=== PATIENT | female | born 1955 | race Caucasian/White ===

== ENCOUNTER 2017-01-17 20:52 | Emergency (ER) | payer OTHER ==
[~2017-01-17] VITALS: Ht 160 cm; Wt 159.0 kg
[~2017-01-17 20:52] MED LIST: ALEVE220 M2 PO; FLOVENT 22120 INHALA IH; FLOVENT DISKUS1 DIS2 IH; LEVO-T100 MCG PO; PEPCID COMPLET1 EACH PO; PROAIR HFA8.5 GM IH; VITAMIN D22000 UNIT PO
[2017-01-17] MEDS ORDERED: FLONASE16 G1 BOTH NARES (21:46)
[2017-01-17] MEDS ORDERED: FLOVENT 22120 INHALA IH (21:47)
[2017-01-17] MEDS ORDERED: VITAMIN D2 (21:47)
[2017-01-17] MEDS ORDERED: LEVO-T100 MCG PO (21:47)
[2017-01-17] MEDS ORDERED: ALEVE220 M2 PO (21:48)
[2017-01-17] MEDS ORDERED: JOCK ITCH15 GM TP (21:48)
[2017-01-17] MEDS ORDERED: PEPCID COMPLET1 EACH PO (21:48)
[2017-01-17 21:53] LABS: HEMATOCRIT 47.5 % (36.0-46.0); MCH 28.3 PG (29.0-34.0); MCHC 31.8 G/DL (30.0-36.0); MEAN PLAT.VOLUME 10.3 uM^3 (9.5-12.4); PLATELET COUNT 266 K/uL (156-360); RBC DIS.WIDTH-CV 12.9 % (11.8-14.6); RED BLOOD COUNT 5.34 M/uL (3.80-5.20); WHITE BLOOD COUNT 11.7 K/uL (4.1-10.2)
[2017-01-17 22:15] LABS: CHLORIDE 106 mEq/L (99-109); POTASSIUM 4.1 mEq/L (3.7-5.4); SODIUM 140 mEq/L (136-147)
[2017-01-17 22:16] LABS: MAGNESIUM 1.9 mg/dL (1.3-2.7)
[2017-01-17 22:18] LABS: GLUCOSE 105 mg/dL (70-99)
[2017-01-17 22:19] LABS: ANION GAP 10 MEQ/L (2-14)
[2017-01-17 22:20] LABS: TOTAL BILIRUBIN 0.5 mg/dL (0.0-1.0)
[2017-01-17 22:21] LABS: ALKALINE PHOSPHATASE 83 IU/L (3-129); GFR ESTIMATE (CALCULATED) > 59 mL/min/
[2017-01-17 22:23] LABS: UREA NITROGEN (BUN) 18 mg/dL (9-23)
[2017-01-17 22:27] LABS: TROP-I INTERPRETATION NEGATIVE; TROPONIN-I < 0.01 ng/mL (0.0-0.30)
[2017-01-18 00:34] VITALS: BP 161/99
== END 2017-01-18 00:55 | disposition home or self-care (01) ==
LOC: EME 20:52
PROVIDERS: Emergency Medicine
DX: R00.2 Palpitations (principal); R00.1 Bradycardia, unspecified; J45.909 Unspecified asthma, uncomplicated; E03.9 Hypothyroidism, unspecified; Z87.891 Personal history of nicotine dependence
CPT/HCPCS: 71010; 80053; 83735; 84100; 84443; 84484; 85027; 93005; 99281; 99285